=== PATIENT | female | born 1970 | race Caucasian/White ===

== ENCOUNTER 2024-02-16 06:36 | Day surgery (SDC) | payer BC ==
[~2024-02-16] VITALS: Ht 162.6 cm; Wt 91.6 kg
[2024-02-16] MEDS ORDERED: SIMETHICONE 40 MG/0.6 ML ML ONE (07:21)
[2024-02-16 07:48] VITALS: O2SAT 96
[2024-02-16] MEDS ORDERED: fentaNYL CITRATE/PF 100 MCG/2 ML AMP ONE (08:39)
[2024-02-16] MEDS ORDERED: MIDAZOLAM HCL 5 MG/5 ML VIAL ONE (08:39)
[2024-02-16 13:18] VITALS: BP_SYST 115; PULSE 72; RESP 18
== END 2024-02-16 09:47 | disposition home or self-care (01) ==
LOC: SDS 06:36 → SMU 06:47 → SDS 09:47
PROVIDERS: ATTEND Surgery
DX: Z43.3 Encounter for attention to colostomy (principal); G43.909 Migraine, unspecified, not intractable, without status migrainosus; K57.30 Diverticulosis of large intestine without perforation or abscess without bleeding
CPT/HCPCS: 44388; 99152; 99153; G0378; J2250; J3010; 45378